=== PATIENT | female | born 1955 | race Caucasian/White ===

== ENCOUNTER → 2016-10-13 | Outpatient (CLI) | payer OTHER ==
[~2016-10-13] MED LIST: HYZAAR PO; MEDROLDOSEPACK PO; PHENERGAN 25 MG25 M1 PO; SYNTHROID; TIAZAC; VALIUM5 MG PO
== END ==
LOC: RAD 15:07
DX: Z12.31 Encounter for screening mammogram for malignant neoplasm of breast (principal)

== ENCOUNTER 2017-05-15 10:38 | Emergency (ER) | payer OTHER ==
[~2017-05-15] VITALS: Ht 170.2 cm; Wt 90.7 kg
[2017-05-15] MEDS ORDERED: ASPIRIN81 M2 PO (11:35)
[2017-05-15] MEDS ORDERED: SYNTHROID100 MCG PO (11:36)
[2017-05-15] MEDS ORDERED: VITAMIN D2000 UNIT PO (11:36)
[2017-05-15] MEDS ORDERED: HYZAAR 100-251 EACH PO (11:37)
[2017-05-15] MEDS ORDERED: DILTIAZEM 24HR120 M2 PO (11:37)
[2017-05-15] MEDS ORDERED: OSELB75 PO (11:59)
[2017-05-15] MEDS ORDERED: IBUPROFEN 600600 M1 PO (11:59)
[2017-05-15] MEDS ORDERED: ACETAMINOPHEN-1 EAC1 PO (11:59)
[2017-05-15] MEDS ORDERED: ZOFRAN ODT4 MG PO (11:59)
[2017-05-15] MEDS ORDERED: TESSALON PERLE100 M1 PO (11:59)
[2017-05-15 12:50] VITALS: BP 140/84
== END 2017-05-15 12:53 | disposition home or self-care (01) ==
LOC: ER 10:38
DX: J11.1 Influenza due to unidentified influenza virus with other respiratory manifestations (principal); I10 Essential (primary) hypertension; Z90.710 Acquired absence of both cervix and uterus; Z90.49 Acquired absence of other specified parts of digestive tract; Z88.5 Allergy status to narcotic agent

== ENCOUNTER → 2017-05-19 | Outpatient (CLI) | payer OTHER ==
[~2017-05-19] MED LIST changes: +ACETAMINOPHEN-1 EAC1 PO; +ACID REDUCER200 MG PO; +ASPIRIN81 M2 PO; +DILTIAZEM 24HR120 M2 PO; +HYZAAR 100-251 EACH PO; +IBUPROFEN 600600 M1 PO; +NORFLEX100 MG PO; +OSELB75 PO; +SYNTHROID100 MCG PO; +TESSALON PERLE100 M1 PO; +TRAMADOL 50 MG50 MG PO; +VITAMIN D2000 UNIT PO; +ZOFRAN ODT4 MG PO
== END ==
LOC: RAD 08:41
DX: R05 Cough (principal)

== ENCOUNTER 2017-10-05 15:01 | Emergency (ER) | payer OTHER ==
[~2017-10-05] VITALS: Ht 170.2 cm; Wt 86.2 kg
--- NOTE | ~2017-10-05 | EKG ---
[place] [address] [facility] [employer] [address] ELECTROCARDIOGRAM REPORT Name: CATALINA SHORE [id number] Admission: 10/05/17 Attend Phys: Discharge: 10/05/17 Date of : 55 Report #: [id number] THIS REPORT FOR: //name// [facility] ED Test Date: 2017-10-05 Test Time: 15:44:00 Pat Name: CATALINA SHORE Department: Room: Gender: F Procedures Rn: MARTHA : 1955 Requested By: Toño Willson Order Number: [id number] MD: Brant Sánchez Measurements Intervals Chapman Rate: 64 P: 16 SD: 160 QRS: 2 QRSD: 114 T: 23 QT: 433 QTc: 447 Interpretive Statements Sinus rhythm Borderline intraventricular conduction delay No previous ECG available for comparison Electronically Signed On 10-06-2017 8:05:03 CDT by Brant Sánchez [email or web address] <ELECTRONICALLY SIGNED> By: Brant Sánchez MD, [facility] 10/06/17 0805 [id number] Brant Sánchez MD, FACC /EPI
[~2017-10-05 15:01] MED LIST changes: -ACID REDUCER200 MG PO; -NORFLEX100 MG PO; -TRAMADOL 50 MG50 MG PO
[2017-10-05] MEDS ORDERED: ACID REDUCER200 MG PO (15:22)
[2017-10-05 15:47] LABS: ABSOLUTE NEUTROPHILS 4.6 thou/uL (1.4-8.2); BASOPHILS 0.8 % (0.0-2.0); EOSINOPHILS 1.6 % (0.0-3.0); HEMOGLOBIN 14.1 gm/dL (12.0-15.0); LYMPHOCYTES 20.8 % (24.0-44.0); MCH 26.9 pg (26.0-34.0); MCHC 34.3 g/dL (28.0-37.0); MCV 78.4 fL (80.0-100.0); MONOCYTES 6.2 % (1.0-8.0); PLATELET COUNT 206 thou/uL (150-400); POLYS 70.6 % (36.0-66.0); RBC 5.23 mil/uL (4.20-5.00); WBC 6.5 thou/uL (4.0-11.0)
[2017-10-05 15:52] LABS: ANION GAP 7 mmol/L (7-16); BUN 18 mg/dL (7-18); CALCIUM 9.9 mg/dL (8.5-10.1); CHLORIDE 104 mmol/L (98-107); CO2 28 mmol/L (21-32); CREATININE 0.8 mg/dL (0.6-1.0); GLUCOSE 97 mg/dL (74-106); POTASSIUM 3.1 mmol/L (3.5-5.1); SODIUM 139 mmol/L (136-145)
[2017-10-05 16:08] LABS: MAGNESIUM 2.2 mg/dL (1.8-2.4); SGOT 15 U/L (15-37); SGPT 12 U/L (30-65); TOTAL BILIRUBIN 0.3 mg/dL (<0.1-1.0); TOTAL PROTEIN 7.5 g/dL (6.4-8.2); TROPONIN-I < 0.04 ng/mL (<0.06)
[2017-10-05] MEDS ORDERED: NORFLEX100 MG PO (17:46)
[2017-10-05] MEDS ORDERED: TRAMADOL 50 MG50 MG PO (17:46)
[2017-10-05 18:38] VITALS: BP 137/80
== END 2017-10-05 18:39 | disposition home or self-care (01) ==
LOC: ER 15:01
PROVIDERS: Emergency Medicine
DX: M54.6 Pain in thoracic spine (principal); K21.0 Gastro-esophageal reflux disease with esophagitis; E87.6 Hypokalemia; R31.9 Hematuria, unspecified; M25.511 Pain in right shoulder; I10 Essential (primary) hypertension; Z90.49 Acquired absence of other specified parts of digestive tract; Z90.710 Acquired absence of both cervix and uterus; Z88.8 Allergy status to other drugs, medicaments and biological substances

== ENCOUNTER → 2017-10-28 | Outpatient (CLI) | payer OTHER ==
[~2017-10-28] MED LIST changes: +ACID REDUCER200 MG PO; +NORFLEX100 MG PO; +TRAMADOL 50 MG50 MG PO
== END ==
LOC: ULTRA 08:01
DX: N28.1 Cyst of kidney, acquired (principal); K76.89 Other specified diseases of liver

== ENCOUNTER → 2018-03-01 | Outpatient (CLI) | payer OTHER | LOC: BC 01:40 | DX: Z12.31 Encounter for screening mammogram for malignant neoplasm of breast (principal) ==

== ENCOUNTER → 2018-03-04 | Outpatient (CLI) | payer OTHER ==
[2018-03-04 13:32] LABS: CREATININE 0.8 mg/dL (0.6-1.0)
== END ==
LOC: CAT 13:01
PROVIDERS: Internal Medicine Gastroenterology
DX: K76.89 Other specified diseases of liver (principal); K86.2 Cyst of pancreas; N28.1 Cyst of kidney, acquired

== ENCOUNTER → 2019-12-18 | Outpatient (CLI) | payer OTHER | LOC: RAD 07:41 | PROVIDERS: ATTEND Family Medicine | DX: Z12.31 Encounter for screening mammogram for malignant neoplasm of breast (principal) ==

== ENCOUNTER → 2020-05-31 | Outpatient (CLI) | payer OTHER | LOC: CAT 16:20 | PROVIDERS: ATTEND Nurse Practitioner | DX: R55 Syncope and collapse (principal) ==

== ENCOUNTER → 2020-06-03 | Outpatient (CLI) | payer OTHER | LOC: SJCVCIMAG | PROVIDERS: ATTEND Internal Medicine Cardiovascular Disease | DX: M47.816 Spondylosis without myelopathy or radiculopathy, lumbar region (principal); M53.3 Sacrococcygeal disorders, not elsewhere classified; Z79.891 Long term (current) use of opiate analgesic; Z88.2 Allergy status to sulfonamides; Z88.8 Allergy status to other drugs, medicaments and biological substances; Z79.899 Other long term (current) drug therapy ==

== ENCOUNTER → 2020-06-07 | Outpatient (CLI) | payer OTHER | LOC: SJCVCIMAG 06:48 | PROVIDERS: ATTEND Internal Medicine Cardiovascular Disease | DX: R06.00 Dyspnea, unspecified (principal); R93.1 Abnormal findings on diagnostic imaging of heart and coronary circulation; R55 Syncope and collapse ==

== ENCOUNTER → 2021-01-27 | Outpatient (CLI) | payer OTHER | LOC: BC 09:25 | PROVIDERS: ATTEND Family Medicine | DX: Z12.31 Encounter for screening mammogram for malignant neoplasm of breast (principal); N64.89 Other specified disorders of breast ==

== ENCOUNTER → 2021-02-26 | Outpatient (CLI) | payer OTHER | LOC: RAD 16:00 | PROVIDERS: ATTEND Internal Medicine Cardiovascular Disease | DX: Z13.6 Encounter for screening for cardiovascular disorders (principal); I25.10 Atherosclerotic heart disease of native coronary artery without angina pectoris ==